=== PATIENT | female | born 1970 | race Caucasian/White ===

== ENCOUNTER 2016-12-17 20:44 | Emergency (ER) | payer BC ==
[2016-12-17 20:54] VITALS: BP 128/82
[2016-12-17] MEDS ORDERED: Ondansetron ODT TAB* 4 MG PO ONE (21:27)
[2016-12-17] MEDS ORDERED: Ketorolac INJ* 30 MG/ML 1 ML VIAL IM ONE (21:27)
--- NOTE | 2016-12-17 21:33 | UC ---
Headache HPI - HPI Summary HPI Summary: Headache, malaise, cough, nasal congestion, and subj fever starting 2 nights ago. Denies trouble breathing. Vomited x 3 today, called out of work. Lots of frontal pain with headache. - History Of Current Complaint Chief Complaint: UCGeneralIllness Stated Complaint: SINUS VOMITING Time Seen by Provider: 12/17/16 21:17 Hx Obtained From: Patient ?: No Onset/Duration: Gradual Onset, Lasting Days Onset Of Symptoms: Gradual Timing: Days Character: Dull Location of Headache: Frontal Aggravating Factor: Bright Lights Associated Signs And Symptoms: Positive: Vomiting, Fever - Allergies/Home Medications Allergies/Adverse Reactions: Allergies Allergy/AdvReac Type Severity Reaction Status Date / Time No Known Allergies Allergy Verified 12/17/16 20:54 Home Medications: Home Medications Metoprolol Succinate XL TAB* [Toprol XL TAB*] 25 mg PO DAILY 12/17/16 [History Confirmed 12/17/16] PMH/Surg Hx/FS Hx/Imm Hx Cardiovascular History Of: Reports: Cardiac Disorders - Pt has tachycardia, this is why she's on the metoprolol. Sees epidemiologist. - Surgical History Surgical History: Yes Surgery Procedure, Year, and Place: Back surgery - Family History Known Family History: Negative: Blood Disorder - Social History Occupation: Employed Full-time - corrections Lives: With Family Alcohol Use: Rare Substance Use Type: None Smoking Status (MU): Never Smoked Tobacco Review of Systems Constitutional: Chills Skin: Negative Eyes: Negative ENT: Nasal Discharge Respiratory: Cough Cardiovascular: Negative Gastrointestinal: Vomiting Genitourinary: Negative Motor: Negative Neurovascular: Negative Musculoskeletal: Negative Neurological: Headache Psychological: Negative All Other Systems Reviewed And Are Negative: Yes Physical Exam Triage Information Reviewed: Yes Appearance: Well-Appearing, Well-Nourished, Pain Distress - mild Vital Signs: Initial Vital Signs Temp 97.9 F 12/17/16 20:49 Pulse 130 12/17/16 20:49 Resp 18 12/17/16 20:49 BP 128/82 12/17/16 20:49 Pulse Ox 100 12/17/16 20:49 Vital Signs Reviewed: Yes Eye Exam: Normal - PERRL Eyes: Positive: Conjunctiva Clear ENT: Positive: Pharynx normal, Nasal congestion, TMs normal. Negative: Tonsillar swelling, Tonsillar exudate Dental Exam: Normal Neck exam: Normal Neck: Positive: Supple, Nontender, No Lymphadenopathy Respiratory Exam: Normal Respiratory: Positive: Chest non-tender, Lungs clear, Normal breath sounds, No respiratory distress, No accessory muscle use Cardiovascular: Positive: No Murmur, Tachycardia Musculoskeletal Exam: Normal Musculoskeletal: Positive: Strength Intact, ROM Intact Neurological Exam: Normal Neurological: Positive: Alert, Muscle Tone Normal Psychological Exam: Normal Skin Exam: Normal Headache Course/Dx - Differential Dx/Diagnosis Provider Diagnoses: Fntqfkrvy-zhwy-celztal. headache Discharge - Discharge Plan Condition: Stable Disposition: HOME Prescriptions: Ondansetron TAB* [Zofran Tab*] 8 mg PO Q8H PRN #6 tab PRN Reason: Vomiting Patient Education Materials: Viral Syndrome (ED) Forms: *Work Release Additional Instructions: As we discussed, I suspect you have influenza. Because it is getting too late to treat with tamiflu, there is no benefit to running an influenza swab. Please return for care if you have fever longer than 5 days or if your headache does not improve by . If you still have significant headache tomorrow, please take 2 zofran pills and 600mg ibuprofen (this is usuall 3 of the [id number] pills).
== END 2016-12-17 21:58 | disposition home or self-care (01) ==
LOC: MERGE 20:44 → UCCORT 20:44
DX: J11.1 Influenza due to unidentified influenza virus with other respiratory manifestations (principal)
CPT/HCPCS: 96372; 99202; A9270-GY; G0463; J1885

== ENCOUNTER 2017-02-15 07:32 | Emergency (ER) | payer BC ==
[2017-02-15 07:45] VITALS: BP 122/82
--- NOTE | 2017-02-15 08:26 | UC ---
Skin Complaint HPI - HPI Summary HPI Summary: RED SPOTS , NOT PRUITIC, ON FOREARMS AND HANDS FOR TWO WEEKS. PT HAS NO RECALL OF ANY NEW EXPOSURES. NO RECENT ILLNESS. Not itcy. no d/c. has been there for 3 wks. has not changed at all since that time. no contacts have anything similar. not painful. She got back from [facility] 3 days prior to start. Feels fine ow/ w/o systemic sx. no fevers, chills. not in any other areas. no new lesions since initial onset. works at correctional facility. uncertain of any direct contact of substance that may have caused sx. - History of Current Complaint Chief Complaint: UCSkin Time Seen by Provider: 02/15/17 07:43 Stated Complaint: SKIN COMPLAINT Hx Last Menstrual Period: 2004 - Allergy/Home Medications Allergies/Adverse Reactions: Allergies Allergy/AdvReac Type Severity Reaction Status Date / Time No Known Allergies Allergy Verified 02/15/17 07:38 Review of Systems Constitutional: Negative Skin: Rash Eyes: Negative ENT: Negative Respiratory: Negative Cardiovascular: Negative Gastrointestinal: Negative Genitourinary: Negative Motor: Negative Neurovascular: Negative Musculoskeletal: Negative Neurological: Negative Psychological: Negative All Other Systems Reviewed And Are Negative: Yes PMH/Surg Hx/FS Hx/Imm Hx Previously Healthy: Yes Cardiovascular History Of: Reports: Cardiac Disorders - RAPID HEART RATE Cancer History Of: Denies: Breast Cancer - Surgical History Surgical History: Yes Surgery Procedure, Year, and Place: HYSTERECTOMY. BACK SURGERY - Family History Known Family History: Positive: Cardiac Disease, Hypertension, Diabetes Negative: Blood Disorder - Social History Alcohol Use: None Substance Use Type: None Smoking Status (MU): Never Smoked Tobacco - Immunization History Most Recent Influenza Vaccination: NOT IN 2013 Physical Exam Triage Information Reviewed: Yes Appearance: Well-Appearing, No Pain Distress, Well-Nourished - very pleasant Vital Signs: Initial Vital Signs Temp 97.9 F 02/15/17 07:39 Pulse 108 02/15/17 07:39 Resp 16 02/15/17 07:39 BP 122/82 02/15/17 07:39 Pulse Ox 99 02/15/17 07:39 Vital Signs Reviewed: Yes Eye Exam: Normal ENT Exam: Normal Neck exam: Normal Respiratory Exam: Normal Respiratory: Positive: Lungs clear, Normal breath sounds Cardiovascular Exam: Normal Cardiovascular: Positive: RRR - HR 88 on MD rpt, No Murmur, Pulses Normal, Brisk Capillary Refill Abdominal Exam: Normal Abdomen Description: Positive: Nontender, Soft Musculoskeletal Exam: Normal Neurological Exam: Normal Psychological Exam: Normal Skin: Positive: Other - b/l extensor arms only with many lesions (15-20) small, slightly rasied vessicular lesions, non-blanching, no d/c, cool to touch, not tender. 2-5 mm in size. Largest lesion left extensor thumb about 7mm. 2 lesions on left flexor index finger that are slightly tender. appear tracking pattern on left thumb. Course/Dx - Differential Diagnoses - Skin Complaint Differential Diagnoses: Contact Dermatitis, Drug Rash, Local Allergic Reaction, Scabies, Viral Exanthem, Other - coxsackie - Diagnoses Provider Diagnoses: dermatitis Discharge - Discharge Plan Condition: Stable Disposition: HOME Prescriptions: Hydrocortisone Valerate [Westcort] 0.2 % TOPICAL BID #30 oin Patient Education Materials: Dermatitis (ED) Referrals: No Primary Care Phys,NOPCP [Primary Care Provider] - Additional Instructions: Follow up with your sub master Dr Reese this week if possible.
== END 2017-02-15 08:54 | disposition home or self-care (01) ==
LOC: UCCORT 07:32
DX: L30.9 Dermatitis, unspecified (principal); Z90.710 Acquired absence of both cervix and uterus
CPT/HCPCS: 99212; G0463

== ENCOUNTER 2018-03-10 08:56 | Emergency (ER) | payer BC ==
[2018-03-10 09:38] VITALS: BP 122/80
--- NOTE | 2018-03-10 10:17 | UC ---
Throat Pain/Nasal Jason HPI - HPI Summary HPI Summary: sore throat x 3 days no fever, + chills, + body aches, + cough , nasal congestion , pnd - History of Current Complaint Chief Complaint: UCRespiratory Stated Complaint: COUGH/ST Time Seen by Provider: 03/10/18 09:43 Hx Obtained From: Patient Hx Last Menstrual Period: 2004 Onset/Duration: Gradual Onset, Lasting Days - 3, Still Present Severity: Moderate Pain Intensity: 6 Cough: Nonproductive Associated Signs & Symptoms: Positive: Nasal Discharge. Negative: Dysphagia, FB Sensation, Hoarseness, Sinus Discomfort, Fever, Rash - Allergies/Home Medications Allergies/Adverse Reactions: Allergies Allergy/AdvReac Type Severity Reaction Status Date / Time seasonal Allergy Eyes Uncoded 03/10/18 09:39 Itchy/Swollen/Red/Watery Home Medications: Home Medications Ibuprofen [Advil] 400 mg PO ONCE PRN 03/10/18 [History Confirmed 03/10/18] Loratadine [Claritin] 10 mg PO QAM 03/10/18 [History Confirmed 03/10/18] PMH/Surg Hx/FS Hx/Imm Hx Cardiovascular History: Cardiac Disease - rapid heart rate - Surgical History Surgical History: Yes Surgery Procedure, Year, and Place: HYSTERECTOMY 2004. BACK SURGERY - Family History Known Family History: Positive: Cardiac Disease, Hypertension, Diabetes Negative: Blood Disorder - Social History Alcohol Use: None Substance Use Type: None Smoking Status (MU): Never Smoked Tobacco - Immunization History Most Recent Influenza Vaccination: NOT IN 2013 Review of Systems Constitutional: Negative Skin: Negative Eyes: Negative ENT: Sore Throat, Nasal Discharge Respiratory: Cough Is Patient Immunocompromised?: No All Other Systems Reviewed And Are Negative: Yes Physical Exam Triage Information Reviewed: Yes Appearance: Well-Appearing, No Pain Distress, Well-Nourished Vital Signs: Initial Vital Signs Temp 97.9 F 03/10/18 09:28 Pulse 107 03/10/18 09:28 Resp 18 03/10/18 09:28 BP 122/80 03/10/18 09:28 Pulse Ox 97 03/10/18 09:28 Vital Signs Reviewed: Yes Eyes: Positive: Conjunctiva Clear ENT: Positive: Normal ENT inspection, Hearing grossly normal, Pharyngeal erythema, Nasal congestion. Negative: Nasal drainage, Tonsillar swelling, Tonsillar exudate Neck: Positive: Supple, Nontender, No Lymphadenopathy Respiratory: Positive: Chest non-tender, Lungs clear, Normal breath sounds Cardiovascular: Positive: RRR, No Murmur, Tachycardia Abdominal Exam: Normal Skin Exam: Normal Throat Pain/Nasal Course/Dx - Differential Dx/Diagnosis Provider Diagnoses: viral pharyngitis Discharge - Sign-Out/Discharge Documenting (check all that apply): Discharge/Admit/Transfer - Discharge Plan Condition: Stable Disposition: HOME Patient Education Materials: Pharyngitis (ED) Referrals: No Primary Care Phys,NOPCP [Primary Care Provider] - If Needed - Billing Disposition and Condition Condition: STABLE Disposition: HOME
== END 2018-03-10 10:18 | disposition home or self-care (01) ==
LOC: UCCORT 08:56
DX: J02.8 Acute pharyngitis due to other specified organisms (principal)
CPT/HCPCS: 87651; 99211; G0463

== ENCOUNTER 2019-10-29 12:55 | Emergency (ER) | payer BC ==
--- OUTSIDE RECORDS SUMMARY | 2019-10-29 13:05 | XMS REPORT | Continuity of Care Document ---
:1970 External Reference #:[id number] Author Name Shagufta Smart MD Address [address] [place]available [place] [address] Care Team Providers Name Role Phone Rodolfo Erwin MD - Care Team Information Revenue Field Auditor [phone] Cardiovascular Disease Gabrielle Duran FACTORY WORKER - Family Care Team Information Revenue Field Auditor [phone] Problems Active Problems Provider Date Obesity Shagufta Smart MD Onset: 07/19/2016 Palpitations Shagufta Smart MD Onset: 07/19/2016 Social History Type Date Description Comments Sex Unknown Tobacco Use Start: Unknown Never Smoked Cigarettes Smoking Status Reviewed: 09/01/19 Never Smoked Cigarettes ETOH Use Never used alcohol Allergies, Adverse Reactions, Alerts Description No Known Drug Allergies Medications Active Medications SIG Qnty Indications Ordering Provider Date Aspirin Adult Low 1 by mouth every 30tabs Z82.49 Audie Bone 2016 Dose day Samson Mott, FACC 81mg Tablets Topbelen XL 1 by mouth every 90tabs Audie Bone 25mg Tablets day at bedtime Samson Mott, FACC ER 24HR Immunizations Description No Information Available Vital Signs Date Vital Result Comment 09/01/2019 4:19pm BP Systolic Sitting Left Arm 118 mmHg BP Diastolic Sitting Left Arm 94 mmHg Heart Rate 100 /min Respiratory Rate 18 /min Height 67 inches 5'7" Weight 216.00 lb BMI (Body Mass Index) 33.8 kg/m2 BSA (Body Surface Area) 2.09 m2 [place] body weight in kilograms 61 kg O2 % BldC Oximetry 95 % Ora 08/18/2018 3:22pm BP Systolic Sitting Left Arm 122 mmHg BP Diastolic Sitting Left Arm 94 mmHg Heart Rate 104 /min Respiratory Rate 16 /min Height 67 inches 5'7" Weight 218.00 lb BMI (Body Mass Index) 34.1 kg/m2 BSA (Body Surface Area) 2.10 m2 [place] body weight in kilograms 61 kg O2 Saturation Level with Exercise 98 % Results Description No Information Available Procedures Date Code Description Status 09/01/2019 80506 EKG-Tracing And Report Completed Medical Devices Description No Information Available Encounters Type Date Location Provider Dx Diagnosis Office Visit 09/01/2019 4:00p Cardiology Office Shagufta Smart MD R00.2 Palpitations Assessments Date Code Description Provider 09/01/2019 R00.2 Palpitations Shagufta Smart MD Plan of Treatment Future Appointment(s):09/13/2020 3:45 pm - Shagufta Smart MD at Cardiology Mrtsvq9209/01/2019 - Shagufta Smart, MDR00.2 PalpitationsComments:well controlled. overall feels well. no change made. follow up goldie year or sooner if changes in symptoms or new symptoms arise. Healthy diet and routine exercise as well as sleep hygiene and stress reduction discussed in detailAllFollow up:1 year Sooner appt if symptoms arise. Functional Status Functional Condition Comment Date Status Glasses Active Independent with all ADL's Active Mental Status Description No Information Available Referrals Description No Information Available
[2019-10-29 13:23] VITALS: BP 127/76
--- NOTE | 2019-10-29 14:01 | UC ---
Throat Pain/Nasal Jason HPI - HPI Summary HPI Summary: Dqnt-geia-zzu female presenting with sinus congestion, sinus pressure, sinus headaches, postnasal drip, and fatigue 2 weeks. Patient states she was hoping she would just get better but symptoms just one improve despite OTC treatment. Also notes bilateral ear pressure and mild sore throat. Denies hearing chills. Denies cough. - History of Current Complaint Chief Complaint: UCRespiratory Stated Complaint: SINUS Hx Obtained From: Patient Hx Last Menstrual Period: 2004 Onset/Duration: Gradual Onset, Lasting Weeks Pain Intensity: 1 - Allergies/Home Medications Allergies/Adverse Reactions: Allergies Allergy/AdvReac Type Severity Reaction Status Date / Time seasonal Allergy Eyes Uncoded 10/29/19 13:18 Itchy/Swollen/Red/Watery PMH/Surg Hx/FS Hx/Imm Hx Cardiovascular History: Hypertension - Surgical History Surgical History: Yes Surgery Procedure, Year, and Place: Lumbar Microdiscectomy, ~2011, [place]; Hysterectomy, 2005, [place] - Family History Known Family History: Positive: Cardiac Disease, Hypertension, Diabetes Negative: Blood Disorder - Social History Alcohol Use: None Substance Use Type: None Smoking Status (MU): Never Smoked Tobacco - Immunization History Most Recent Influenza Vaccination: NOT IN 2013 Review of Systems All Other Systems Reviewed And Are Negative: Yes Constitutional: Positive: Fatigue. Negative: Fever, Chills ENT: Positive: Sore Throat - mild, Ear Ache - b/l pressure, Nasal Discharge - PND, Sinus Congestion, Sinus Pain/Tenderness Respiratory: Positive: Negative. Negative: Shortness Of Breath, Cough Cardiovascular: Positive: Negative Gastrointestinal: Positive: Negative. Negative: Vomiting, Nausea Musculoskeletal: Negative: Myalgia Neurological: Positive: Headache - "sinus headache" Physical Exam Triage Information Reviewed: Yes Appearance: Well-Appearing, No Pain Distress, Well-Nourished Vital Signs: Initial Vital Signs Temp 98.8 F 10/29/19 13:16 Pulse 110 10/29/19 13:16 Resp 16 10/29/19 13:16 BP 127/76 10/29/19 13:16 Pulse Ox 98 10/29/19 13:16 Vital Signs Reviewed: Yes Eyes: Positive: Conjunctiva Clear ENT: Positive: Hearing grossly normal, Nasal congestion, Nasal drainage - PND, TMs normal, Sinus tenderness - maxillary, Uvula midline. Negative: Pharyngeal erythema, Tonsillar swelling, Tonsillar exudate Neck exam: Normal Neck: Positive: Supple, Nontender, No Lymphadenopathy Respiratory Exam: Normal Respiratory: Positive: Lungs clear, Normal breath sounds, No respiratory distress Cardiovascular Exam: Normal Cardiovascular: Positive: RRR Neurological: Positive: Alert Psychological: Positive: Age Appropriate Behavior Throat Pain/Nasal Course/Dx - Course Course Of Treatment: I treated patient with Augmentin for sinusitis. Instructed to continue with symptomatic treatment and follow up with pcp if symptoms persist. Patient voiced understanding and agreed with treatment plan. - Differential Dx/Diagnosis Differential Diagnosis/HQI/PQRI: Pharyngitis, Sinusitis, URI Provider Diagnosis: Acute rhinosinusitis Discharge ED - Sign-Out/Discharge Documenting (check all that apply): Patient Departure All imaging exams completed and their final reports reviewed: No Studies - Discharge Plan Condition: Stable Disposition: HOME Prescriptions: Amoxicillin/Clavulanate TAB* [Augmentin TAB 875*] 875 mg PO BID #14 tab Patient Education Materials: Rhinosinusitis (ED) Referrals: [facility] [Outside] - If Needed [facility] [Outside] - If Needed Additional Instructions: Take Augmentin for treatment of your sinusitis. You may continue to take mucinex to reduce mucus production. You may also use Flonase or nasal saline spray for symptomatic relief. You may continue with ibuprofen as directed for pain relief. Follow up with your primary care provider if symptoms do not resolve. - Billing Disposition and Condition Condition: STABLE Disposition: Home
== END 2019-10-29 14:28 | disposition home or self-care (01) ==
LOC: UCCORT 12:55
DX: J01.90 Acute sinusitis, unspecified (principal); I10 Essential (primary) hypertension; Z91.09 Other allergy status, other than to drugs and biological substances
CPT/HCPCS: 99212; G0463